=== PATIENT | female | born 1940 | race Caucasian/White ===

== ENCOUNTER 2016-10-07 08:27 | Day surgery (SDC) | payer MEDICARE, OTHER ==
[2016-10-02 11:21] LABS: HEMOGLOBIN 12.3 g/dL (12.0-16.0)
[2016-10-02 11:22] LABS: HEMATOCRIT 36.5 % (36.0-48.0)
[2016-10-02 11:34] LABS: BUN (BLOOD UREA NITROGEN) 9 MG/DL (6-23); CALCIUM, SERUM 8.8 MG/DL (8.5-10.4); CHLORIDE, SERUM 100 MMOL/L (96-112); CO2 (CARBON DIOXIDE) 26 MMOL/L (24-34); GFR AFRICAN AMERICAN 71 ML/MIN (>=60); GFR NON AFRICAN AMERICAN 62 ML/MIN (>=60); GLUCOSE, SERUM 140 MG/DL (60-99); POTASSIUM, SERUM 4.8 MMOL/L (3.5-5.3); SODIUM, SERUM 136 MMOL/L (135-148)
--- NOTE | ~2016-10-07 | OP ---
Record Of Operation [facility] [address] [place]. [address] NAME: ELLIOT CHAN : 38 STATUS : [facility]#: [id number] AGE: 76 ADM/REG DATE : 10/07/16 MR#: [id number] REPORT SERV DATE: 10/15/16 DICTATED BY: LU THOMASON DATE: 10/07/16 REPORT STATUS : Draft TRANSCRIBED BY: MODElier DATE: 10/07/16 DATE OF PROCEDURE: 10/07/2016 PREPROCEDURE DIAGNOSIS: Fecal incontinence. POSTPROCEDURE DIAGNOSIS: Fecal incontinence. PROCEDURE: InterStim percutaneous nerve stimulator. SURGEON: Lu Thomason M.D. [employer] REP: Blanca Barrow. INDICATION: Fecal incontinence of gas, liquid, and solid stool. DESCRIPTION OF PROCEDURE: The patient was properly identified, placed in the prone position per OR protocol. General anesthesia was administered. Pillows were placed under the lower abdomen to flatten the sacrum and under the shins to allow the toes to dangle freely. The grounding pad with red lead was attached to the patient's heel on the patient's left side. The patient was prepped and draped in the usual sterile fashion using Hibiclens and ChloraPrep. The C-arm was draped and moved into the AP position to provide fluoroscopic mapping of the sacral region which included marking out of the midline of the sacrum, SI joints, sciatic notches, medial foraminal borders, and the sacral foramina. The C-arm was moved into the lateral position to image the sacrum. Sacral promontory to the coccyx. Local injection of a 1:1 mixture of 1% lidocaine and 0.25% Marcaine with epinephrine was administered. A 3.5 cm foramen needle was introduced approximately 2 cm above the sciatic notch and 2 cm lateral to the sacral midline filling for the foraminal margins until the S3 foramen was identified and penetrated on the left side. The depth of the needle was confirmed and adjusted fluoroscopically. Proper needle position was confirmed by a direct observation of lifting of the perineum or Taylor, and observation of plantar flexion of the great using the external test stimulator. This was also tried on the patient's right side. The best result was actually on the patient's left, so the foramen needle stylet was removed and a directional wire guide was placed confirmed fluoroscopically with the bead at the anterior plane of the sacral bone. The foramen needle was removed. An incision was made peripherally to the directional guidewire through the fascial layer. The lead introducer sheath with dilator was placed over the directional guidewire and directed into the foramen ensuring the radiopaque marker of the lead introducer, was not extended beyond the anterior edge of the sacrum. The dilator was unlocked and removed along with the directional guidewire. The lead was then placed through the introducer sheath past the first white marker, but not past the second. The position was checked fluoroscopically. The lead was then further introduced until three electrodes were visible below the sacrum. Each electrode was tested for location by and visualization of the Taylor and plantar flexion of the great toe. After satisfactory positioning was confirmed, the introducer sheath was retracted with the wire under continuous fluoro deploying the lead tines into the presacral tissue. A further incision was made into the subcu tissue posterior to the iliac crest and lateral to the sacrum. Blunt dissection was continued until the gluteal fascia was Record Of Operation [facility] [address] [facility] [place]. [address] NAME: ELLIOT CHAN : 38 STATUS : [facility]#: [id number] AGE: 76 ADM/REG DATE : 10/07/16 MR#: [id number] REPORT SERV DATE: 10/15/16 DICTATED BY: LU THOMASON DATE: 10/07/16 REPORT STATUS : Draft TRANSCRIBED BY: JOSE GUADALUPE DATE: 10/07/16 identified and hemostasis was achieved. A tunneling tool with straw was placed from the lead exit site subcutaneously to the incised pocket site. The tunneling tool was removed and the lead was fed through the straw and pulled out the pocket site. The lead was cleansed of bodily fluids and dried. The lead was inserted into the header of the InterStim neurostimulator until the blue tip was visualized. The four set screws were tightened with the hex wrench until two clicks were heard. The boot was pushed over the connection. Prolene ties were used to secure on the grooves on either side of the connection. A tunnel was made subcutaneously and exited to a puncture site above the ipsilateral buttock. The percutaneous extension was placed through the straw and exposed wand connected to the twist lock [place] cable by the [employer]. The wounds were irrigated with sterile water and antibiotic solution, closed with interrupted 3-0 Vicryl sutures, 4-0 Monocryl running subcu. Counts were correct. Mastisol, Steri-Strips, Telfa were placed over the incisions followed by Tegaderm. She tolerated the procedure well and her program will be set in recovery, and she was given instructions. MARCY/JOSE GUADALUPE Lu Thomason M.D. / [id number] CC: Jessica Diaz M.D. Eugene Ryan, M.D.
[~2016-10-07 08:27] MED LIST: ACIDOPHILU1 PO; ASAB PO; ASTELIN NAS; AUG875 PO; B121000P IM; BACTRONASA NAS; CALTRA600D PO; CELEXA10 PO; COZAAR100 MG PO; EVISTA60 PO; FERROUS SULF325 M1 PO; FISH-EPA1000 MG PO; GLUCPH PO; LOM PO; MTX2.5 PO; MULTIVITAMI1 PO; NEUR400 PO; NEUR600 PO; NEUR800 PO; NEXIUM40 PO; NORCO1 TA2 PO; PROTONIX PO; T PO; TREXALL5 MG PO; VERELANPM2 PO; VOLTAREN1 % TOP; ZOFRAN4 PO
== END 2016-10-07 15:50 | disposition home or self-care (01) ==
LOC: SDC 08:27
PROVIDERS: Surgery
PROC: 01HY3MZ Insertion of Neurostimulator Lead into Peripheral Nerve, Percutaneous Approach (ICD-10-PCS; 2016-10-07)
PROC: 0JH70MZ Insertion of Stimulator Generator into Back Subcutaneous Tissue and Fascia, Open Approach (ICD-10-PCS; principal; 2016-10-07 09:45)
DX: R15.9 Full incontinence of feces (principal); I10 Essential (primary) hypertension; G47.33 Obstructive sleep apnea (adult) (pediatric); K21.9 Gastro-esophageal reflux disease without esophagitis; L40.50 Arthropathic psoriasis, unspecified; Z88.2 Allergy status to sulfonamides; Z88.5 Allergy status to narcotic agent; E11.9 Type 2 diabetes mellitus without complications; Z98.41 Cataract extraction status, right eye; Z98.42 Cataract extraction status, left eye; Z96.1 Presence of intraocular lens; Z91.010 Allergy to peanuts; Z98.51 Tubal ligation status; Z98.890 Other specified postprocedural states; Z79.84 Long term (current) use of oral hypoglycemic drugs; Z79.899 Other long term (current) drug therapy
CPT/HCPCS: 76000; 80048; 82962; 85014; 85018; 93005; C1767; C1778; C1787; J1885; J2405; J2795; J3010; J3370